=== PATIENT | male | born 1955 | race Two or more races ===

== ENCOUNTER 2023-11-09 09:48 | Emergency (ER) | payer OTHER ==
[~2023-11-09] VITALS: Ht 170.2 cm; Wt 60.3 kg
[2023-11-09] MEDS ORDERED: KEPPRA500 MG PO (09:56)
[2023-11-09] MEDS ORDERED: CLONAZEPAM0.5 MG PO (09:57)
[2023-11-09] MEDS ORDERED: COZAAR50 MG PO (09:57)
[2023-11-09 13:42] LABS: HEMATOCRIT 47.9 % (39.0-48.0); HEMOGLOBIN 16.8 g/dL (13-16.00); MEAN CELL VOLUME 91.9 fL (80.0-100.00); MEAN CORPUSCULAR HEMOGLOBIN 32.2 pg (27.00-32.0); MEAN CORPUSCULAR HGB CONC 35.1 g/dl (32.0-36.0); PLATELET COUNT 275 K/uL (150-450); RED BLOOD COUNT 5.22 M/uL (4.00-6.00); RED CELL DISTRIBUTION WIDTH 13.3 % (11.5-14.5)
[2023-11-09 13:43] LABS: PH,URINE 6.5 (5.0-8.0); URINE APPEARANCE Clear; URINE BILIRRUBIN Negative (NEGATIVE); URINE BLOOD Negative; URINE COLOR Yellow; URINE GLUCOSE Negative (NEGATIVE); URINE LEUKOCYTE Negative; URINE NITRATE Negative; URINE PROTEIN Negative (NEGATIVE); URINE UROBILINOGEN 0.2 E.U./dl
[2023-11-09 14:01] LABS: URINE BACTERIA 1.2 uL (0.0-1933); URINE EPITHELIAL CELLS 0.1 uL (0.0-38.8); URINE RBC 1.4 uL (0.0-20.8); URINE WBC 0.1 uL (0.0-23.2)
[2023-11-09 14:57] LABS: BILIRUBIN TOTAL 0.95 mg/dL (0.3-1.2); CALCIUM 9.9 mg/dL (8.5-10.1); CREATININE SERUM 1.01 mg/dL (0.70-1.30); GFR 73.03; GLOBULINA 3.8 G/DL (2.4-3.5); POTASSIUM 4.38 mEq/L (3.5-5.1); TOTAL PROTEIN 7.8 gm/dL (6.4-8.2)
== END 2023-11-09 15:44 | disposition home or self-care (01) ==
LOC: ER 09:49
PROVIDERS: General Practice
DX: F41.9 Anxiety disorder, unspecified (principal); I10 Essential (primary) hypertension